=== PATIENT | male | born 1985 ===

== ENCOUNTER 2018-03-28 09:52 | Emergency (ER) | payer BC ==
[2018-03-28 10:15] VITALS: BP 117/86
--- NOTE | 2018-03-28 10:36 | UC ---
Lower Extremity/Ankle HPI - HPI Summary HPI Summary: left foot pain x 2 days injury to his left foot 2 days ago as he jumped off his boat no swelling of his left foot, increase pain with walking, improves with rest, - History of Current Complaint Chief Complaint: UCLowerExtremity Stated Complaint: BODY ACHES,LEFT FOOT COMP Time Seen by Provider: 03/28/18 10:14 Hx Obtained From: Patient Onset/Duration: Sudden Onset, Lasting Days - 2, Still Present Severity Initially: Moderate Severity Currently: Moderate Pain Intensity: 10 Aggravating Factor(s): Standing, Ambulation Alleviating Factor(s): Rest, Elevation, Ice Able to Bear Weight: Yes - Allergies/Home Medications Allergies/Adverse Reactions: Allergies Allergy/AdvReac Type Severity Reaction Status Date / Time No Known Allergies Allergy Verified 03/28/18 10:11 Home Medications: Home Medications ALPRAZolam TAB* [Xanax TAB*] 0.5 mg PO TID PRN 03/28/18 [History Confirmed 03/28] Dextroamphetamine/Amphetamine [Adderall Xr 20 mg Capsule] 20 mg PO DAILY [History Confirmed 03/28/18] Escitalopram Oxalate [Lexapro 20 mg] 20 mg PO DAILY 03/28/18 [History Confirmed 03/28/18] busPIRone TAB* [Buspar TAB*] 1 tab PO DAILY 03/28/18 [History Confirmed 03/28/18 ] PMH/Surg Hx/FS Hx/Imm Hx Previously Healthy: Yes - Surgical History Surgical History: None - Family History Known Family History: Negative: Diabetes - Social History Alcohol Use: None Substance Use Type: None Smoking Status (MU): Never Smoked Tobacco Review of Systems Constitutional: Negative Skin: Negative Eyes: Negative ENT: Negative Respiratory: Negative Cardiovascular: Negative Motor: Negative Musculoskeletal: Other: - left foot pain Is Patient Immunocompromised?: No All Other Systems Reviewed And Are Negative: Yes Physical Exam Triage Information Reviewed: Yes Appearance: Well-Appearing, No Pain Distress, Well-Nourished Vital Signs: Initial Vital Signs Temp 98 F 03/28/18 10:09 Pulse 99 03/28/18 10:09 Resp 18 03/28/18 10:09 BP 117/86 03/28/18 10:09 Pulse Ox 98 03/28/18 10:09 Vital Signs Reviewed: Yes Eyes: Positive: Conjunctiva Clear ENT: Positive: Normal ENT inspection, Hearing grossly normal, Pharynx normal Neck: Positive: Supple, Nontender, No Lymphadenopathy Respiratory: Positive: Chest non-tender, Lungs clear, Normal breath sounds Cardiovascular: Positive: RRR, No Murmur, Pulses Normal Musculoskeletal: Positive: Other: - left foot : no swelling, no erythema, + tenderness forefoot platar surface Diagnostics - Laboratory Diagnostic Studies Completed/Ordered: xray left foot : FINDINGS: The bones are in normal alignment. No fracture is seen. Joint spaces appear. maintained. IMPRESSION: NO EVIDENCE FOR FRACTURE. Lower Extremity Course/Dx - Differential Dx/Diagnosis Provider Diagnoses: contusion left foot Discharge - Sign-Out/Discharge Documenting (check all that apply): Discharge/Admit/Transfer - Discharge Plan Condition: Stable Disposition: HOME Patient Education Materials: Foot Contusion (ED) Referrals: Jignesh Graves DO [Primary Care Provider] - 7 Days - Billing Disposition and Condition Condition: STABLE Disposition: Home
--- NOTE | 2018-03-28 10:41 | RAD ---
INDICATION: Left foot injury. TECHNIQUE: 3 views of the left foot were obtained. FINDINGS: The bones are in normal alignment. No fracture is seen. Joint spaces appear maintained. IMPRESSION: NO EVIDENCE FOR FRACTURE.
== END 2018-03-28 10:53 | disposition home or self-care (01) ==
LOC: UCCORT 09:52
DX: S90.32XA Contusion of left foot, initial encounter (principal); Y93.39 Activity, other involving climbing, rappelling and jumping off; Y92.814 Boat as the place of occurrence of the external cause
CPT/HCPCS: 99212; G0463